=== PATIENT | female | born 1975 | race Caucasian/White ===

== ENCOUNTER 2016-09-03 16:15 | Emergency (ER) | payer BC, OTHER ==
[~2016-09-03] VITALS: Ht 160 cm; Wt 68.5 kg
[2016-09-03 16:20] VITALS: Ht 160 cm; Wt 68.5 kg
--- NOTE | 2016-09-03 17:26 | ERD ---
ER Documentation Chief Complaint Date/Time DATE: 09/03/16 TIME: 17:24 Chief Complaint PELVIC PAIN W/NAUSEA X2 DAYS HPI Patient is a 41-year-old female with a past medical history of tubal ligation who presents to the ED with bilateral pelvic pain, pelvic pressure and dysuria 2 days. She states that the pain came on suddenly 2 days ago. She denies vomiting but states that she has mild nausea. Denies fever or chills. Denies chest pain, cough, shortness of breath or difficulty breathing. Denies abdominal pain. Denies diarrhea or constipation. Denies leg pain or leg swelling. She states that she has had a history of STDs in the past. It was treated recently for trichomoniasis. States that her last normal menstrual period was 3 months ago. No other complaints. ROS All systems reviewed and are negative except as per history of present illness. Medications Home Meds Active Scripts Naproxen* (Naprosyn*) 500 Mg Tablet, 500 MG PO BID Y for PAIN AND/OR INFLAMMATION, #30 TAB Prov:MICH CARDENAS PA-C 09/03/16 Nitrofurantoin Monohyd Macrocr* (Macrobid*) 100 Mg Capsr, 100 MG PO BID for 14 Days, CAP Prov:MICH CARDENAS PA-C 09/03/16 Allergies Allergies: Coded Allergies: No Known Allergy (Unverified , 09/03/16) PMhx/Soc History of Surgery: Yes (Tubal ligation) Anesthesia Reaction: No Hx Neurological Disorder: No Hx Respiratory Disorders: No Hx Cardiac Disorders: No Hx Psychiatric Problems: No Hx Miscellaneous Medical Probl: No Hx Alcohol Use: No Hx Substance Use: No Hx Tobacco Use: No Smoking Status: Never smoker FmHx Family History: No coronary disease, No diabetes, No other Physical Exam Vitals Vital Signs Date Time Temp Pulse Resp B/P Pulse Ox O2 Delivery O2 Flow Rate FiO2 09/03/16 16:20 98.2 97 20 134/86 98 Physical Exam GENERAL: Well-developed, well-nourished female. Appears in no acute distress. HEAD: Normocephalic, atraumatic. EYES: Pupils are equally reactive bilaterally. EOMs grossly intact. No conjunctival erythema. ENT: Moist mucous membranes. No uvula deviation. No kissing tonsils. No exudates. NECK: Supple. No lymphadenopathy or thyromegaly. No meningismus. negative kernig. negative brudinski. LUNG: Clear to auscultation bilaterally. No rhonchi, wheezing, rales or coarse breath sounds. HEART: Regular rate and rhythm. No murmurs, rubs or gallops. ABDOMEN: No scars, ecchymosis or rashes noted. Soft, nontender, and nondistended. Positive bowel sounds in all four quadrants. No rebound tenderness , no guarding. (-) McBurneys point tenderness. No CVA tenderness. BACK: No midline tenderness. Mild bilateral pelvic pain. : No abnormal vaginal discharge. No CMT. Extremities: Equal pulses bilaterally. No peripheral clubbing, cyanosis or edema. No unilateral leg swelling. NEUROLOGIC: Alert and oriented. Moving all four extremities. 5/5 strength in all extremities. Normal speech. Steady gait. SKIN: Normal color. Warm and dry. No rashes or lesions. Capillary refill < 2 seconds Results 24 hrs Laboratory Tests Test 09/03/16 17:35 Bedside Urine pH (LAB) 5.5 Bedside Urine Protein (LAB) Trace Bedside Urine Glucose (UA) Negative Bedside Urine Ketones (LAB) Negative Bedside Urine Blood Negative Bedside Urine Nitrite (LAB) Negative Bedside Urine Leukocyte Esterase (L Trace Procedures/MDM ER COURSE: I kept the patient and/or family informed of laboratory and diagnostic imaging results throughout the emergency room course. IMAGING STUDIES [place] [id number] Radiology Main Line: [phone] DIAGNOSTIC IMAGING REPORT Patient: NONI LOVE : 1975 Age: 41 Sex: F [id number] DOS: 09/03/16 1718 Ordering MD: MICH CARDENAS PA-C Location: [facility] Room/Bed: PROCEDURE: US Pelvis CLINICAL INDICATION: PELVIC PAIN TECHNIQUE: Multiple sonographic images of the pelvis were obtained utilizing a transabdominal and endovaginal technique. The images were reviewed on a PACS workstation. COMPARISON: None. LMP: 06/12/2016 FINDINGS: The uterus measures 9.4 x 5.6 x 6.3 cm. The endometrial echo complex measures 18 mm in thickness. Several sub-centimeter Nabothian cysts are identified. The right ovary measures 3.8 x 2.4 x 3.7 cm. The left ovary measures 2.8 x 1.7 x 2.9 cm. There is normal vascular flow in both ovaries. There is a 2.6 cm complex cystic lesion with heterogeneous internal echoes and irregular shape in the right ovary which is likely a hemorrhagic/corpus luteal cyst. It is not associated with significant vascular flow. No significant pelvic free fluid is identified. IMPRESSION: Thickening of the endometrium to 18 mm may be related to stage of the menstrual cycle. There is no evidence of an intrauterine or increased vascularity in the endometrium to suggest retained products of conception. 2.6 cm complex cystic lesion in the right ovary is likely a hemorrhagic/corpus luteal cyst. It is not associated with significant vascular flow to suggest that it is an ectopic . These findings were discussed with Mich Cardenas Pa-c over the phone on 09/03/2016 at 6:21 PM . RPTAT: EE Physician Opal Date Time Electronically viewed and signed by Physician Opal on 09/03/2016 18:21 RA/ CC: MICH CARDENAS PA-C LABORATORY STUDIES Urine dip shows trace leukocytes with no hematuria or nitrites negative test MEDICAL DECISION MAKING: This is a 41-year-old female who presents with bilateral pelvic pain and dysuria 2 days. Vital signs were reviewed. Patient is afebrile. Patient is not hypoxic. Patient is not toxic or ill-appearing. Patient likely has cystitis. Her ultrasound is read by radiologist Thickening of the endometrium to 18 mm may be related to stage of the menstrual cycle. There is no evidence of an intrauterine or increased vascularity in the endometrium to suggest retained products of conception. 2.6 cm complex cystic lesion in the right ovary is likely a hemorrhagic/corpus luteal cyst. It is not associated with significant vascular flow to suggest that it is an ectopic . Low suspicion for ovarian torsion, PID, tuboovarian abscess, ectopic , bowel obstruction, pyelonephritis, UTI, appendicitis, cervicitis, septic , molar , HELLP syndrome, preeclampsia, eclampsia, placenta previa, placenta abruptia. DISCHARGE: At this time, patient is stable for discharge and outpatient management with no new complaints during the ER course. Patient was sent home with [place] and a copy of imaging report.. Patient will be discharged home with instructions to recheck for new or worsening symptoms such as fever, nausea, weakness, LOC and to follow up with primary care in the next 1-2 days. Patient was advised to return to the ER for any new or worsening symptoms. Plan was discussed and patient and/or family understands and agrees. Home instructions were given. Departure Diagnosis: Primary Impression: Cystitis Additional Impression: Pelvic pain Condition: Stable MICH CARDENAS PA-C September 03, 2016 17:26
[2016-09-03 17:33] LABS: URINE BLOOD (Dip) POC Negative (NEGATIVE)
[2016-09-03] MEDS ORDERED: NAPR-260 PO (18:14)
[2016-09-03] MEDS ORDERED: NITR-58 PO (18:14)
--- NOTE | 2016-09-03 18:21 | RADRPT ---
PROCEDURE: US Pelvis CLINICAL INDICATION: PELVIC PAIN TECHNIQUE: Multiple sonographic images of the pelvis were obtained utilizing a transabdominal and endovaginal technique. The images were reviewed on a PACS workstation. COMPARISON: None. LMP: 06/12/2016 FINDINGS: The uterus measures 9.4 x 5.6 x 6.3 cm. The endometrial echo complex measures 18 mm in thickness. Several sub-centimeter Nabothian cysts are identified. The right ovary measures 3.8 x 2.4 x 3.7 cm. The left ovary measures 2.8 x 1.7 x 2.9 cm. There is no rmal vascular flow in both ovaries. There is a 2.6 cm complex cystic lesion with heterogeneous internal echoes and irregular shape in th e right ovary which is likely a hemorrhagic/corpus luteal cyst. It is not associated with significa nt vascular flow. No significant pelvic free fluid is identified. IMPRESSION: Thickening of the endometrium to 18 mm may be related to stage of the menstrual cycle. There is no evidence of an intrauterine or increased vascularity in the endometrium to suggest retaine d products of conception. 2.6 cm complex cystic lesion in the right ovary is likely a hemorrhagic/corpus luteal cyst. It is n ot associated with significant vascular flow to suggest that it is an ectopic . These findings were discussed with Beverly Cardenas Pa-c over the phone on 09/03/2016 at 6:21 PM . RPTAT: EE Physician Opal Date Time Electronically viewed and signed by Physician Opal on 09/03/2016 18:21 /
[2016-09-03 18:46] VITALS: BP 136/90; PULSE 85; RESP 18; TEMP 99.4
== END 2016-09-03 18:48 | disposition home or self-care (01) ==
LOC: FTE 16:15
DX: N30.90 Cystitis, unspecified without hematuria (principal)
CPT/HCPCS: 76830; 76856; 81003; 87591